=== PATIENT | male | born 1950 | race Caucasian/White ===

== ENCOUNTER → 2016-11-19 | Outpatient (CLI) | payer MEDICARE | END | disposition home or self-care (01) | LOC: LAB 09:22 | PROVIDERS: ATTEND Nurse Practitioner | DX: E78.5 Hyperlipidemia, unspecified (principal) | CPT/HCPCS: 80061 ==

== ENCOUNTER → 2016-12-17 | Outpatient (CLI) | payer MEDICARE ==
--- NOTE | 2016-12-17 12:40 | RAD ---
Thyroid ultrasound 12/17/2016 at 0914 hours Indication: Dysphagia Comparison: None available Technique: Sonographic imaging of the thyroid was performed utilizing grayscale and color Doppler. Findings: Right thyroid gland measures 4.9 x 1.6 x 1.7 cm and is homogenous in echotexture. No cystic or solid nodules are identified. The left thyroid gland measures 5.1 x 1.6 x 1.4 cm and is homogenous in echotexture. No cystic or solid nodules are identified. Thyroid isthmus is normal in appearance. Impression: Normal thyroid ultrasound.
== END | disposition home or self-care (01) ==
LOC: US 08:50
PROVIDERS: ATTEND Physician Assistant
DX: E05.90 Thyrotoxicosis, unspecified without thyrotoxic crisis or storm (principal); R13.19 Other dysphagia
CPT/HCPCS: 76536